=== PATIENT | male | born 1975 | race Caucasian/White ===

== ENCOUNTER 2016-12-23 22:15 | Emergency (ER) | payer MEDICAID ==
[2016-12-23 22:19] VITALS: BP 136/77
== END 2016-12-23 23:38 | disposition home or self-care (01) ==
LOC: ED 22:15
DX: S01.01XA Laceration without foreign body of scalp, initial encounter (principal); S93.401A Sprain of unspecified ligament of right ankle, initial encounter; W50.0XXA Accidental hit or strike by another person, initial encounter; Y93.89 Activity, other specified; Y99.8 Other external cause status; Y92.89 Other specified places as the place of occurrence of the external cause
CPT/HCPCS: J2001

== ENCOUNTER 2017-01-02 14:45 | Emergency (ER) | payer MEDICAID ==
[2017-01-02 14:49] VITALS: BP 132/89
== END 2017-01-02 16:09 | disposition home or self-care (01) ==
LOC: ED 14:45
DX: S01.91XD Laceration without foreign body of unspecified part of head, subsequent encounter (principal); X58.XXXD Exposure to other specified factors, subsequent encounter; Y92.89 Other specified places as the place of occurrence of the external cause; Y99.8 Other external cause status